=== PATIENT | male | born 1950 | race African-American/Black ===

== ENCOUNTER 2018-03-31 11:51 | Inpatient (IN) | payer OTHER ==
[2018-03-31 12:09] VITALS: BMI 24.5
--- NOTE | 2018-03-31 12:33 | HP ---
CIWA Score Nausea/Vomitin Muscle Tremors: 2 Anxiety: 2 Agitation: 2 Paroxysmal Sweats: 1-Minimal Palms Moist Orientation: 0-Oriented Tacttile Disturbances: 1-Very Mild Itch/Numbness Auditory Disturbances: 1-Very Mild Visual Disturbances: 0-None Headache: 2-Mild CIWA-Ar Total Score: 13 - Admission Criteria OASAS Guidelines: Admission for Medically Managed Detox: Requires at least one of the followin. CIWA greater than 12 2. Seizures within the past 24 hours 3. Delirium tremens within the past 24 hours 4. Hallucinations within the past 24 hours 5. Acute intervention needed for co occurring medical disorder 6. Acute intervention needed for co occurring psychiatric disorder 7. Severe withdrawal that cannot be handled at a lower level of care (continued vomiting, continued diarrhea, abnormal vital signs) requiring intravenous medication and/or fluids 8. Patient presents the following: CIWA greater than 12 Admission Criteria Met: Admission criteria met Admission ROS BHS - HPI Chief Complaint: i need help to stop drinking alcohol Allergies/Adverse Reactions: Allergies Allergy/AdvReac Type Severity Reaction Status Date / Time No Known Allergies Allergy Verified 03/31/18 20:40 History of Present Illness: this 67 years old male with alcohol dependence,seeking detox,withdrawal symptom, last detox in the [place],did not recall the facility 03/02 syncope alcohol related hiv since 1989 weight loss no significant period of sobriety plan to go to rehab after detox Exam Limitations: No Limitations - Ebola screening Have you traveled outside of the country in the last 21 days: No Have you been sick,other than usual withdrawal symptoms: No - Review of Systems Constitutional: Loss of Appetite, Malaise, Night Sweats, Changes in sleep, Weakness, Unintentional Wgt. Loss EENT: reports: Tearing, Nose Congestion Respiratory: reports: No Symptoms reported Cardiac: reports: No Symptoms Reported GI: reports: Nausea, Vomiting, Abdominal cramping : reports: No Symptoms Reported Musculoskeletal: reports: Back Pain, Muscle Pain Integumentary: reports: Dryness Neuro: reports: Headache, Tremors Endocrine: reports: No Symptoms Reported Hematology: reports: No Symptoms Reported, Other (hiv on med) Psychiatric: reports: No Sypmtoms Reported, Judgement Intact, Mood/Affect Appropiate, Orientated x3 Other Systems: Reviewed and Negative Patient History - Patient Medical History Hx Anemia: No Hx Asthma: No Hx Chronic Obstructive Pulmonary Disease (COPD): No Hx Cancer: No Hx Cardiac Disorders: No Hx Congestive Heart Failure: No Hx Hypertension: No Hx Hypercholesterolemia: No Hx Pacemaker: No HX Cerebrovascular Accident: No Hx Seizures: No Hx Dementia: No Hx Diabetes: No Hx Gastrointestinal Disorders: No Hx Liver Disease: No Hx Genitourinary Disorders: No Hx Sexually Transmitted Disorders: No Hx Renal Disease (ESRD): No Hx Thyroid Disease: No Hx Human Immunodeficiency Virus (HIV): Yes (since 1989) Hx Hepatitis C: No Hx Depression: No Hx Suicide Attempt: No Hx Bipolar Disorder: No Hx Schizophrenia: No Other Medical History: no suicidal,no homicidal - Patient Surgical History Past Surgical History: No - PPD History Previous Implant?: Yes Documented Results: Negative w/o proof Implanted On Prior [facility] Admission?: No PPD to be Administered?: Yes - Smoking Cessation Smoking history: Never smoked - Substance & Tx. History Hx Alcohol Use: Yes Hx Substance Use: No Substance Use Type: Alcohol Hx Substance Use Treatment: Yes (03/02 in the [place]) - Substances Abused Alcohol Route: Oral Frequency: Daily Amount used: 1 pint of vodka,gin Age of first use: 64 Date of Last Use: 03/30/18 Family Disease History - Family Disease History Family History: Denies Family Disease History: Other: Father (anju,) Admission Physical Exam BHS - Vital Signs Vital Signs: Vital Signs - 24 hr 03/31/18 12:07 Temperature 98.4 F Pulse Rate 100 H Respiratory 18 Rate Blood Pressure 157/94 - Physical General Appearance: Yes: Moderate Distress, Tremorous, Irritable, Sweating, Anxious HEENTM: Yes: Normal ENT Inspection, HERBERT, Pharynx Normal Respiratory: Yes: Lungs Clear, Normal Breath Sounds, No Respiratory Distress Neck: Yes: Within Normal Limits, Supple, Trachea in good position Breast: Yes: Within Normal Limits Cardiology: Yes: Within Normal Limits, Regular Rhythm, Regular Rate, S1, S2 Abdominal: Yes: Within Normal Limits, Normal Bowel Sounds, Non Tender, Soft Genitourinary: Yes: Within Normal Limits Back: Yes: Muscle Spasm Musculoskeletal: Yes: Back pain, Muscle Pain Extremities: Yes: Tremors Neurological: Yes: back feeder plywood layup line II-XII NML intact, Fully Oriented, Alert, Motor Strength 5/5 Integumentary: Yes: Dry Lymphatic: Yes: Within Normal Limits - Diagnostic (1) Alcohol dependence with uncomplicated withdrawal Current Visit: Yes Status: Acute (2) Alcohol dependence with uncomplicated intoxication Current Visit: Yes Status: Acute (3) HIV (human immunodeficiency virus infection) Current Visit: Yes Status: Acute (4) Weight loss Current Visit: Yes Status: Acute (5) Syncope Current Visit: Yes Status: Acute Cleared for Admission BHS - Detox or Rehab [facility] Level of Care: Medically Managed Detox Regimen/Protocol: Librium S Breath Alcohol Content Breath Alcohol Content: 194 Urine Drug Screen - Results Drug Screen Negative: No Urine Drug Screen Results: BZO-Benzodiazepines Inpatient Rehab Admission - Rehab Decision to Admit Inpatient rehab admission?: No
[2018-03-31] MEDS ORDERED: chlordiazePOXIDE HCL 25 MG CAPSULE PO PRN (13:32)
[2018-03-31] MEDS ORDERED: LOPERAMIDE HCL 2 MG CAPSULE PO PRN (13:32)
[2018-03-31] MEDS ORDERED: guaiFENesin/D-METHORPHAN HB 10 ML UNIT-DOSE CUPS PO PRN (13:32)
[2018-03-31] MEDS ORDERED: P-EPHED 60MG/TRIPROLIDI 2.5MG TABLET PO PRN (13:32)
[2018-03-31] MEDS ORDERED: IBUPROFEN 400 MG TABLET (FP) PO PRN (13:32)
[2018-03-31] MEDS ORDERED: MAGNESIUM HYDROX 2400MG/30ML ORAL SUSPENSION 30 ML CUP PO PRN (13:32)
[2018-03-31] MEDS ORDERED: MAGNESIUM CITRATE 300 ML BOTTLE PO PRN (13:32)
[2018-03-31] MEDS ORDERED: MENTHOL/PHENOL 1 EACH UD MM PRN (13:32)
[2018-03-31] MEDS ORDERED: hydrOXYzine PAMOATE 25 MG CAPSULE (FP) PO PRN (13:32)
[2018-03-31] MEDS ORDERED: MAG HYDROX/AL HYDROX/SIMETH 30 ML UNIT-DOSE CUP PO PRN (13:32)
[2018-03-31] MEDS ORDERED: ACETAMINOPHEN 325 MG TABLET (FP) PO PRN (13:32)
[2018-03-31] MEDS ORDERED: TRIMETHOBENZAMIDE HCL 200MG/2ML INJ IM PRN (17:14)
[2018-03-31] MEDS: chlordiazePOXIDE HCL 25 MG CAPSULE PO SCH ×2 (18:35→23:18)
--- NOTE | 2018-03-31 19:32 | PN ---
[facility] Progress Note Note: informed by nurse that patient had vomited with large amount of coffee material complaint of epigastric pain alert no difficulty in breathing abdomen soft,no distention pain on deep palpation bowel sound active no calf tenderness bp 177/97,p107,r18,t98.2 impression r/o upper gi bleeding alcohol dependence with uncomplicated withdrawal alcohol dependence with uncomplicated intoxication hiv treatment to er at [facility] for evaluation ,stabilization and treatment endorsed to Dr.Paul Esposito transported by [facility] MRS Hayden,nursing splicing supervisor present
[2018-03-31] MEDS ORDERED: MELATONIN 5 MG TABLETS PO PRN (22:00)
[2018-03-31 22:14] LABS: URINE APPEARANCE TURBID; URINE BILIRUBIN NEGATIVE (<2.0 mg/dL); URINE COLOR AMBER; URINE GLUCOSE (UA) NEGATIVE (NEGATIVE); URINE KETONE TRACE (NEGATIVE); URINE LEUK ESTERASE 1+ (NEGATIVE); URINE NITRITE NEGATIVE (NEGATIVE); URINE PROTEIN 2+ (NEGATIVE); URINE UROBILINOGEN NEGATIVE mg/dL (0.2-1.0)
[2018-03-31 22:22] LABS: EPI CELLS RARE /HPF (FEW); URINE BACTERIA MODERATE /hpf (NONE SEEN); URINE HYALINE CAST 3 /lpf; URINE MUCUS MODERATE
[2018-03-31] MEDS: THIAMINE HCL 100 MG TABLET (FP) PO SCH (23:19)
[2018-04-01] MEDS: chlordiazePOXIDE HCL 25 MG CAPSULE PO SCH ×4 (06:27→22:37)
--- NOTE | 2018-04-01 10:39 | EKG ---
Test Reason : Blood Pressure : / mmHG Vent. Rate : 106 BPM Atrial Rate : 106 BPM P-R Int : 202 ms QRS Dur : 088 ms QT Int : 338 ms P-R-T Axes : 051 063 049 degrees QTc Int : 448 ms SINUS TACHYCARDIA SEPTAL INFARCT , AGE UNDETERMINED ABNORMAL ECG NO PREVIOUS ECGS AVAILABLE Confirmed by MILVIA WATTS, EDWAR ([id number]) on 04/01/2018 10:39:15 AM Referred By: Thomas Young Confirmed By:EDWAR STEEL MD
[2018-04-01] MEDS: EMTRICITABINE/TENOFOV ALAFENAM (DESCOVY) TABLET PO SCH (11:03)
[2018-04-01] MEDS: DOLUTEGRAVIR SODIUM 50 MG TABLET (NON-FORMULARY) PO SCH (11:03)
[2018-04-01] MEDS: PRENATAL VITAMINS W/ FOLIC ACID TABLET (FP) PO SCH (11:04)
[2018-04-01 11:18] LABS: ALBUMIN 3.7 g/dl (3.4-5.0); ALK PHOS 67 U/L (45-117); ANION GAP 9 MMOL/L (8-16); BLOOD UREA NITROGEN 6 mg/dL (7-18); CALCIUM 8.3 mg/dL (8.5-10.1); CHLORIDE 96 mmol/L (98-107); CO2 30 mmol/L (21-32); CREATININE 0.9 mg/dL (0.55-1.3); GLUCOSE,RANDOM 116 mg/dL (74-106); POTASSIUM 3.5 mmol/L (3.5-5.1); SGOT/AST 35 U/L (15-37); SGPT/ALT 19 U/L (13-61); SODIUM 135 mmol/L (136-145)
[2018-04-01 11:23] LABS: HEMATOCRIT 37.7 % (35.4-49); HEMOGLOBIN 12.8 GM/dL (11.7-16.9); MCH 31.7 pg (25.7-33.7); MCHC 33.9 g/dl (32.0-35.9); MEAN CELL VOLUME 93.4 fl (80-96); MEAN PLT VOLUME 9.6 fl (7.5-11.1); PLATELET COUNT 165 K/MM3 (134-434); RBC 4.03 M/mm3 (4.00-5.60); RDW 15.7 % (11.9-15.9); WHITE BLOOD COUNT 6.6 K/mm3 (4.0-10.0)
--- NOTE | 2018-04-01 13:24 | PN ---
S CIWA - CIWA Score Nausea/Vomitin Muscle Tremors: 3 Anxiety: 2 Agitation: 0-Normal Activity Paroxysmal Sweats: 3 Orientation: 2-Disoriented Date<2 days Tacttile Disturbances: 0-None Auditory Disturbances: 0-None Visual Disturbances: 2-Mild Sensitivity Headache: 0-None Present CIWA-Ar Total Score: 17 BHS Progress Note (SOAP) Subjective: Sweating, Tremors. Objective: PATIENT A & O X 2 (UNCERTAIN ABOUT CURRENT DAY / DATE). IN NO ACUTE DISTRESS. PATIENT DENIES KNOWN HISTORY OF HTN. 04/01/18 13:20 Vital Signs Temperature 97.3 F L 04/01/18 09:47 Pulse Rate 104 H 04/01/18 09:47 Respiratory Rate 16 04/01/18 09:47 Blood Pressure 140/98 04/01/18 09:47 O2 Sat by Pulse Oximetry (%) Laboratory Tests 03/31/18 04/01/18 04/01/18 16:14 07:50 07:50 WBC 6.6 RBC 4.03 Hgb 12.8 Hct 37.7 MCV 93.4 MCH 31.7 MCHC 33.9 RDW 15.7 Plt Count 165 MPV 9.6 Sodium 135 L Potassium 3.5 Chloride 96 L Carbon Dioxide 30 Anion Gap 9 BUN 6 L Creatinine 0.9 Creat Clearance w eGFR > 60 Random Glucose 116 H Calcium 8.3 L Total Bilirubin 1.0 AST 35 ALT 19 Alkaline Phosphatase 67 Total Protein 8.0 Albumin 3.7 Urine Color [place] Urine Appearance Turbid Urine pH 6.0 Ur Specific [place] 1.024 Urine Protein 2+ H Urine Glucose (UA) Negative Urine Ketones Trace H Urine Blood Negative Urine Nitrite Negative Urine Bilirubin Negative Urine Urobilinogen Negative Ur Leukocyte Esterase 1+ H Urine WBC (Auto) 23 Urine RBC (Auto) 2 Ur Epithelial Cells Rare Urine Bacteria Moderate Hyaline Casts 3 Urine Mucus Moderate RPR Titer 04/01/18 07:50 WBC RBC Hgb Hct MCV MCH MCHC RDW Plt Count MPV Sodium Potassium Chloride Carbon Dioxide Anion Gap BUN Creatinine Creat Clearance w eGFR Random Glucose Calcium Total Bilirubin AST ALT Alkaline Phosphatase Total Protein Albumin Urine Color Urine Appearance Urine pH Ur Specific [place] Urine Protein Urine Glucose (UA) Urine Ketones Urine Blood Urine Nitrite Urine Bilirubin Urine Urobilinogen Ur Leukocyte Esterase Urine WBC (Auto) Urine RBC (Auto) Ur Epithelial Cells Urine Bacteria Hyaline Casts Urine Mucus RPR Titer Nonreactive LABS NOTED. PATIENT WAS EVALUATED (AND SUBSEQUENTLY CLEARED TO RETURN TO DETOX UNIT) YESTERDAY AT [facility] ER FOR C/O EPIGASTRIC PAIN AND VOMITING OF DARKENED-COLORED MATERIAL. PATIENT DENIES EPIGASTRIC PAIN AND AND ANY EPISODES OF VOMITING THUS FAR TODAY. 04/01/18 13:21 Assessment: 04/01/18 13:22 WITHDRAWAL SYMPTOMS. ELEVATED BP. Plan: CONTINUE DETOX. PRN TIGAN IM FOR NAUSEA / VOMITING. CLONIDINE, 0.1 MG PO BID FOR ELEVATED BP AND FOR WITHDRAWAL SYMPTOMS. INCREASE DAILY PO FLUID INTAKE. REPEAT UA FOR ADMISSION ABNORMALITIES. PATIENT ADVISED TO IMMEDIATELY NOTIFY NURSING / MEDICAL STAFF SHOULD VOMITING OCCUR AGAIN. PATIENT VERBALIZED UNDERSTANDING OF RECOMMENDATION.
[2018-04-01] MEDS ORDERED: cloNIDine HCL 0.1 MG TABLET PO ONE (14:00)
[2018-04-01 18:26] LABS: URINE APPEARANCE CLEAR; URINE BILIRUBIN NEGATIVE (<2.0 mg/dL); URINE COLOR LTYELLOW; URINE GLUCOSE (UA) NEGATIVE (NEGATIVE); URINE KETONE NEGATIVE (NEGATIVE); URINE LEUK ESTERASE 3+ (NEGATIVE); URINE NITRITE NEGATIVE (NEGATIVE); URINE PROTEIN NEGATIVE (NEGATIVE); URINE UROBILINOGEN NEGATIVE mg/dL (0.2-1.0)
[2018-04-01] MEDS: cloNIDine HCL 0.1 MG TABLET PO SCH (22:37)
[2018-04-01] MEDS: THIAMINE HCL 100 MG TABLET (FP) PO SCH (22:37)
[2018-04-02] MEDS: chlordiazePOXIDE HCL 25 MG CAPSULE PO SCH ×2 (06:09→10:34)
[2018-04-02] MEDS: PRENATAL VITAMINS W/ FOLIC ACID TABLET (FP) PO SCH (10:33)
[2018-04-02] MEDS: DOLUTEGRAVIR SODIUM 50 MG TABLET (NON-FORMULARY) PO SCH (10:34)
[2018-04-02] MEDS: EMTRICITABINE/TENOFOV ALAFENAM (DESCOVY) TABLET PO SCH (10:34)
[2018-04-02] MEDS: cloNIDine HCL 0.1 MG TABLET PO SCH (10:35)
--- NOTE | 2018-04-02 13:01 | PN ---
[facility] CIWA - CIWA Score Nausea/Vomitin-No Nausea/No Vomiting Muscle Tremors: 3 Anxiety: 2 Agitation: 0-Normal Activity Paroxysmal Sweats: 3 Orientation: 0-Oriented Tacttile Disturbances: 1-Very Mild Itch/Numbness Auditory Disturbances: 0-None Visual Disturbances: 2-Mild Sensitivity Headache: 0-None Present CIWA-Ar Total Score: 11 S Progress Note (SOAP) Subjective: Sweating, Tremors, Fatigue. Patient Denies any Episodes of Vomiting Thus Far Today. Objective: PATIENT A & O X 3. IN NO ACUTE DISTRESS. NO URINARY COMPLAINTS (BURNING, PAIN, FREQUENCY, URGENCY, HESITANCY) OFFERED BY PATIENT DURING TODAY'S ROUNDS ASSESSMENT. 04/02/18 13:01 Vital Signs Temperature 98.6 F 04/02/18 09:45 Pulse Rate 90 04/02/18 09:45 Respiratory Rate 18 04/02/18 09:45 Blood Pressure 92/60 04/02/18 09:45 O2 Sat by Pulse Oximetry (%) Laboratory Tests 03/31/18 04/01/18 04/01/18 16:14 07:50 07:50 WBC 6.6 RBC 4.03 Hgb 12.8 Hct 37.7 MCV 93.4 MCH 31.7 MCHC 33.9 RDW 15.7 Plt Count 165 MPV 9.6 Sodium 135 L Potassium 3.5 Chloride 96 L Carbon Dioxide 30 Anion Gap 9 BUN 6 L Creatinine 0.9 Creat Clearance w eGFR > 60 Random Glucose 116 H Calcium 8.3 L Total Bilirubin 1.0 AST 35 ALT 19 Alkaline Phosphatase 67 Total Protein 8.0 Albumin 3.7 Urine Color [place] Urine Appearance Turbid Urine pH 6.0 Ur Specific [place] 1.024 Urine Protein 2+ H Urine Glucose (UA) Negative Urine Ketones Trace H Urine Blood Negative Urine Nitrite Negative Urine Bilirubin Negative Urine Urobilinogen Negative Ur Leukocyte Esterase 1+ H Urine WBC (Auto) 23 Urine RBC (Auto) 2 Ur Epithelial Cells Rare Urine Bacteria Moderate Hyaline Casts 3 Urine Mucus Moderate RPR Titer 04/01/18 04/01/18 07:50 16:56 WBC RBC Hgb Hct MCV MCH MCHC RDW Plt Count MPV Sodium Potassium Chloride Carbon Dioxide Anion Gap BUN Creatinine Creat Clearance w eGFR Random Glucose Calcium Total Bilirubin AST ALT Alkaline Phosphatase Total Protein Albumin Urine Color Ltyellow Urine Appearance Clear Urine pH 8.0 D Ur Specific [place] 1.009 L Urine Protein Negative Urine Glucose (UA) Negative Urine Ketones Negative Urine Blood Negative Urine Nitrite Negative Urine Bilirubin Negative Urine Urobilinogen Negative Ur Leukocyte Esterase 3+ H D Urine WBC (Auto) 13 Urine RBC (Auto) 2 Ur Epithelial Cells Urine Bacteria Hyaline Casts Urine Mucus RPR Titer Nonreactive LABS NOTED. 04/02/18 13:03 Assessment: 04/02/18 13:02 WITHDRAWAL SYMPTOMS. Plan: CONTINUE DETOX. INCREASE DAILY PO FLUID INTAKE. D/C CLONIDINE DUE TO LOW BP ON LAST SEVERAL READINGS. PATIENT ADVISED TO FOLLOW-UP WITH PUBLIC SERVICES LIBRARIAN DR. LOCKWOOD ([place], [place]) SOON POSSIBLE AFTER DISCHARGE FROM DETOX UNIT FOR GENERAL MEDICAL ASSESSMENT AND FOR VOMITING THAT OCCURRED DURING DETOX ADMISSION. PATIENT VERBALIZED UNDERSTANDING OF RECOMMENDATION.
[2018-04-02] MEDS: chlordiazePOXIDE 5 MG CAPSULE PO SCH ×2 (18:14→23:20)
[2018-04-02] MEDS: THIAMINE HCL 100 MG TABLET (FP) PO SCH (23:20)
[2018-04-03] MEDS: chlordiazePOXIDE 5 MG CAPSULE PO SCH ×2 (06:24→11:00)
[2018-04-03] MEDS: PRENATAL VITAMINS W/ FOLIC ACID TABLET (FP) PO SCH (11:00)
[2018-04-03] MEDS: EMTRICITABINE/TENOFOV ALAFENAM (DESCOVY) TABLET PO SCH (11:00)
[2018-04-03] MEDS: DOLUTEGRAVIR SODIUM 50 MG TABLET (NON-FORMULARY) PO SCH (11:00)
--- NOTE | 2018-04-03 11:46 | PN ---
[facility] Progress Note (SOAP) Subjective: pt here for alcohol detox- says he is doing well, no complaints O: Vital Signs - 24 hr 04/02/18 04/02/18 04/02/18 13:52 17:05 22:41 Temperature 96.3 F L 97.7 F 97.7 F Pulse Rate 84 72 88 Respiratory 18 18 18 Rate Blood Pressure 107/84 111/68 143/81 04/03/18 04/03/18 04/03/18 00:30 06:10 09:11 Temperature 98.6 F 98.1 F Pulse Rate 69 72 Respiratory 18 18 18 Rate Blood Pressure 121/71 129/73 Laboratory Tests 03/31/18 04/01/18 04/01/18 16:14 07:50 07:50 WBC 6.6 RBC 4.03 Hgb 12.8 Hct 37.7 MCV 93.4 MCH 31.7 MCHC 33.9 RDW 15.7 Plt Count 165 MPV 9.6 Sodium 135 L Potassium 3.5 Chloride 96 L Carbon Dioxide 30 Anion Gap 9 BUN 6 L Creatinine 0.9 Creat Clearance w eGFR > 60 Random Glucose 116 H Calcium 8.3 L Total Bilirubin 1.0 AST 35 ALT 19 Alkaline Phosphatase 67 Total Protein 8.0 Albumin 3.7 Urine Color [place] Urine Appearance Turbid Urine pH 6.0 Ur Specific [place] 1.024 Urine Protein 2+ H Urine Glucose (UA) Negative Urine Ketones Trace H Urine Blood Negative Urine Nitrite Negative Urine Bilirubin Negative Urine Urobilinogen Negative Ur Leukocyte Esterase 1+ H Urine WBC (Auto) 23 Urine RBC (Auto) 2 Ur Epithelial Cells Rare Urine Bacteria Moderate Hyaline Casts 3 Urine Mucus Moderate RPR Titer 04/01/18 04/01/18 07:50 16:56 WBC RBC Hgb Hct MCV MCH MCHC RDW Plt Count MPV Sodium Potassium Chloride Carbon Dioxide Anion Gap BUN Creatinine Creat Clearance w eGFR Random Glucose Calcium Total Bilirubin AST ALT Alkaline Phosphatase Total Protein Albumin Urine Color Ltyellow Urine Appearance Clear Urine pH 8.0 D Ur Specific [place] 1.009 L Urine Protein Negative Urine Glucose (UA) Negative Urine Ketones Negative Urine Blood Negative Urine Nitrite Negative Urine Bilirubin Negative Urine Urobilinogen Negative Ur Leukocyte Esterase 3+ H D Urine WBC (Auto) 13 Urine RBC (Auto) 2 Ur Epithelial Cells Urine Bacteria Hyaline Casts Urine Mucus RPR Titer Nonreactive a/p: conitnue alcohol detox protocol pt to consider rehab services- to d/w counselor
[2018-04-03] MEDS: chlordiazePOXIDE HCL 10 MG CAPSULE PO SCH ×2 (17:58→22:30)
[2018-04-03] MEDS: THIAMINE HCL 100 MG TABLET (FP) PO SCH (22:30)
[2018-04-04] MEDS: chlordiazePOXIDE HCL 10 MG CAPSULE PO SCH (05:25)
[2018-04-04 09:18] VITALS: BP 148/97; PULSE 80; TEMP 100.9
--- NOTE | 2018-04-04 20:49 | DS ---
[facility] Detox Discharge Summary Admission Date: 03/31/18 Discharge Date: 04/04/18 - History Present History: Alcohol Dependence Additional Comments: PATIENT DENIES CURRENT WITHDRAWAL / DETOX SYMPTOMS AND REPORTS THAT HE FEELS WELL OVERALL AT TIME OF DISCHARGE FROM DETOX UNIT. PATIENT GOING TO GO TO [facility] ([place], [place]) FOR AFTERCARE. PATIENT AGAIN ADVISED TO FOLLOW-UP WITH MEDICAL PROVIDER DR. LOCKWOOD ([place], [place] ) FOR GENERAL MEDICAL ASSESSMENT AND FOR VOMITING THAT OCCURRED EARLIER ON DURING DETOX ADMISSION. PATIENT VERBALIZED UNDERSTANDING OF RECOMMENDATION AND NOTED THAT HE HAS AN UPCOMING APPOINTMENT WITH DR. LOCKWOOD IN THE NEXT WEEK. PATIENT WAS DISCHARGED FROM DETOX UNIT IN STABLE MEDICAL CONDITION. Pertinent Past History: Weight Loss, H.I.V. History of Syncope. - Physical Exam Results Vital Signs: Vital Signs Temperature 100.9 F H 04/04/18 09:17 Pulse Rate 80 04/04/18 09:17 Respiratory Rate 18 04/04/18 09:17 Blood Pressure 148/97 04/04/18 09:17 O2 Sat by Pulse Oximetry (%) Pertinent Admission Physical Exam Findings: WITHDRAWAL SYMPTOMS. Laboratory Tests 03/31/18 04/01/18 04/01/18 16:14 07:50 07:50 WBC 6.6 RBC 4.03 Hgb 12.8 Hct 37.7 MCV 93.4 MCH 31.7 MCHC 33.9 RDW 15.7 Plt Count 165 MPV 9.6 Sodium 135 L Potassium 3.5 Chloride 96 L Carbon Dioxide 30 Anion Gap 9 BUN 6 L Creatinine 0.9 Creat Clearance w eGFR > 60 Random Glucose 116 H Calcium 8.3 L Total Bilirubin 1.0 AST 35 ALT 19 Alkaline Phosphatase 67 Total Protein 8.0 Albumin 3.7 Urine Color [place] Urine Appearance Turbid Urine pH 6.0 Ur Specific [place] 1.024 Urine Protein 2+ H Urine Glucose (UA) Negative Urine Ketones Trace H Urine Blood Negative Urine Nitrite Negative Urine Bilirubin Negative Urine Urobilinogen Negative Ur Leukocyte Esterase 1+ H Urine WBC (Auto) 23 Urine RBC (Auto) 2 Ur Epithelial Cells Rare Urine Bacteria Moderate Hyaline Casts 3 Urine Mucus Moderate RPR Titer 04/01/18 04/01/18 07:50 16:56 WBC RBC Hgb Hct MCV MCH MCHC RDW Plt Count MPV Sodium Potassium Chloride Carbon Dioxide Anion Gap BUN Creatinine Creat Clearance w eGFR Random Glucose Calcium Total Bilirubin AST ALT Alkaline Phosphatase Total Protein Albumin Urine Color Ltyellow Urine Appearance Clear Urine pH 8.0 D Ur Specific [place] 1.009 L Urine Protein Negative Urine Glucose (UA) Negative Urine Ketones Negative Urine Blood Negative Urine Nitrite Negative Urine Bilirubin Negative Urine Urobilinogen Negative Ur Leukocyte Esterase 3+ H D Urine WBC (Auto) 13 Urine RBC (Auto) 2 Ur Epithelial Cells Urine Bacteria Hyaline Casts Urine Mucus RPR Titer Nonreactive LABS NOTED. - Treatment Hospital Course: Detox Protocol Followed, Detoxed Safely, Responded well, Discharged Condition Good Patient has Accepted a Rehab Referral to: PATIENT TO ATTEND [facility] ([place], [place]). - Medication Discharge Medications: Ambulatory Orders Dolutegravir Sodium [Tivicay] 50 mg PO DAILY 03/31/18 Emtricitabine/Tenofov Alafenam [Descovy 200-25 mg Tablet (Nf)] 1 each PO DAILY 03/31/18 - Diagnosis (1) Alcohol dependence with uncomplicated intoxication Status: Acute (2) Alcohol dependence with uncomplicated withdrawal Status: Acute (3) HIV (human immunodeficiency virus infection) Status: Chronic Qualifiers: HIV symptom status: unspecified Qualified Code(s): B20 - Human immunodeficiency virus [HIV] disease (4) Syncope Status: Acute Qualifiers: Syncope type: unspecified Qualified Code(s): R55 - Syncope and collapse (5) Weight loss Status: Acute - AMA Did Patient Leave Against Medical Advice: No
== END 2018-04-04 09:29 | disposition home or self-care (01) | DRG 897 ==
LOC: YASAS 11:51 → Y6N 13:14
PROVIDERS: ADMIT Surgery; ATTEND Surgery
PROC: HZ2ZZZZ Detoxification Services for Substance Abuse Treatment (ICD-10-PCS; principal; 2018-03-31)
DX: F10.230 Alcohol dependence with withdrawal, uncomplicated (principal); F10.220 Alcohol dependence with intoxication, uncomplicated; Z21 Asymptomatic human immunodeficiency virus [HIV] infection status; R03.0 Elevated blood-pressure reading, without diagnosis of hypertension; R10.13 Epigastric pain; R11.10 Vomiting, unspecified
CPT/HCPCS: 36415; 80053; 81003; 81015; 85027; 86593; 93005; 93010; J0735

== ENCOUNTER 2018-03-31 20:27 | Emergency (ER) | payer OTHER ==
[2018-03-31 20:42] VITALS: BMI 30.7
--- NOTE | 2018-03-31 20:59 | PDOC ---
History of Present Illness - General Chief Complaint: Coffee Ground Emesis Stated Complaint: Nausea/Vomiting Time Seen by Provider: 03/31/18 20:52 History Source: Patient - History of Present Illness Initial Comments: 03/31/18 21:00 The patient is a 67 year old male with a PMH of ETOH abuse (1 year history of 1 pint daily), Hepatitis C (s/p unknown treatment), HIV (on HAART, undetectable viral load) presents to our ED from [facility] c/o 3 episodes of dark colored emesis, 1 month h/o black tarry stools and 2 month h/o fatigues. Endorses associated abdominal cramping that is diffuse, constant, non-radiating. Last alcoholic drink today prior to presentation. Multiple episodes of brown watery emesis during HPI. NKDA Social: 1 pint alcohol daily Infectious Disease: Dr. Ismael Ramos ([facility]) As per EMR, patient has not been evaluated in our ED on prior occasion. Past History - Past Medical History Allergies/Adverse Reactions: Allergies Allergy/AdvReac Type Severity Reaction Status Date / Time No Known Allergies Allergy Verified 03/31/18 20:40 Home Medications: Ambulatory Orders Dolutegravir Sodium [Tivicay] 50 mg PO DAILY 03/31/18 Emtricitabine/Tenofov Alafenam [Descovy 200-25 mg Tablet (Nf)] 1 each PO DAILY 03/31/18 Anemia: No Asthma: No Cancer: No Cardiac Disorders: No CVA: No COPD: No CHF: No Dementia: No Diabetes: No GI Disorders: No Disorders: No HTN: No Hypercholesterolemia: No Liver Disease: No Seizures: No Thyroid Disease: No - Suicide/Smoking/Psychosocial Hx Smoking History: Never smoked Have you smoked in the past 12 months: No Information on smoking cessation initiated: No Hx Alcohol Use: Yes Drug/Substance Use Hx: Yes Substance Use Type: Alcohol Hx Substance Use Treatment: Yes (03/02 in the [facility]) Review of Systems - Review of Systems Constitutional: No: Fever, Weakness HEENTM: No: Recent change in vision Respiratory: No: Cough, Shortness of Breath Cardiac (ROS): No: Chest Pain, Lightheadedness, Palpitations, Syncope ABD/GI: Yes: Tarry Stools. No: Constipated, Diarrhea, Nausea, Vomiting : No: Burning, Dysuria *Physical Exam - Vital Signs Last Vital Signs Temp Pulse Resp BP Pulse Ox 98.0 F 99 H 16 146/86 100 03/31/18 20:38 03/31/18 20:38 03/31/18 20:38 03/31/18 20:38 03/31/18 20:38 - Physical Exam General Appearance: Yes: Nourished, Appropriately Dressed HEENT: positive: Normal Voice, Hearing Grossly Normal Neck: positive: Trachea midline, Supple Respiratory/Chest: positive: Lungs Clear, Normal Breath Sounds Cardiovascular: positive: S1, S2. negative: Edema Vascular Pulses: Dorsalis-Pedis (R): 2+, Doralis-Pedis (L): 2+ Gastrointestinal/Abdominal: positive: Soft, Protuberent. negative: Guarding, Rebound, Tenderness, Hernia, Mass Extremity: positive: Normal Capillary Refill, Normal Inspection Integumentary: positive: Normal Color, Dry, Warm Neurologic: positive: Fully Oriented, Alert Moderate Sedation - Procedure Monitoring Vital Signs: Procedure Monitoring Vital Signs Temperature 98.0 F 03/31/18 20:38 Pulse Rate 99 H 03/31/18 20:38 Respiratory Rate 16 03/31/18 20:38 Blood Pressure 146/86 03/31/18 20:38 O2 Sat by Pulse Oximetry (%) 100 03/31/18 20:38 ED Treatment Course - LABORATORY CBC & Chemistry Diagram: 03/31/18 21:30 03/31/18 21:30 Medical Decision Making - Medical Decision Making 03/31/18 21:01 The patient is a 67 year old male with a PMH of ETOH abuse, HIV, Hepatitis C (s/ p treatment) presents to our ED w/multiple episodes of coffee colored emesis. VS uremarkable. Frontal diagnosis: Variceal bleed, PUD, Naida-Montero tear, also consider malignancy, abdominal perforation though less likely. Will give Protonix/Octreotide, IV hydration, basic labs, lipase pending. Reassess. 03/31/18 21:07 03/31/18 22:29 CBC, CMP unremarkable 03/31/18 22:48 Lipase wnL My read of CXR shows no perforation, normal costophrenic angles FOBT pending 03/31/18 22:49 Patient reassessed @ bedside. VSS Octreotide, Protonix hanging 03/31/18 23:09 Critical Lab Value Lactic Acid 3.6 - patient recieving additional 1 L IV NS 03/31/18 23:09 FOBT negative BUN wnL, Hb stable - at this time low clinical suspicion for active UGI bleed requiring acute endoscopy. 03/31/18 23:37 Case d/w [facility]; requests Librium (50 mg) 04/01/18 01:39 Repeat Lactic Acid pending 04/01/18 02:06 Repeat Lactic Acid 2.6, as lactic acidosis resolving, patient remains hemodynamically stable, will discharge to [facility] with instruction to follow- up with GI following discharged from [facility]. *DC/Admit/Observation/Transfer Diagnosis at time of Disposition: Vomiting - Discharge Dispostion Disposition: TRANSFER ACUTE CARE/OTHER HOSP Condition at time of disposition: Good Decision to Admit order: No - Referrals Referrals: Inderjit Gordon MD [Staff Physician] - - Patient Instructions Additional Instructions: You were evaluated today for vomiting. All of your labs showed no concerning findings. At this time you are safe for discharge home. Please follow up with a document control supervisor within 1 week. We have provided a referral to you, or you can call your insurance company for a list of document control supervisor. Return to the Emergency Department for any new/worsening/concerning symptoms. - Post Discharge Activity
[2018-03-31] MEDS ORDERED: SODIUM CHLORIDE 0.9% 500 ML INFUS.BAG IV ONE (21:45)
[2018-03-31 21:51] LABS: BASO % 0.5 % (0-2.0); HEMATOCRIT 41.2 % (35.4-49); HEMOGLOBIN 14.1 GM/dL (11.7-16.9); LYMPH % 34.8 % (8-40); MCH 32.2 pg (25.7-33.7); MCHC 34.3 g/dl (32.0-35.9); MEAN CELL VOLUME 93.9 fl (80-96); MONO % 13.6 % (3.8-10.2); NEUT % 51.1 % (42.8-82.8); PLATELET COUNT 183 K/MM3 (134-434); RBC 4.39 M/mm3 (4.00-5.60); RDW 15.4 % (11.9-15.9); WHITE BLOOD COUNT 8.5 K/mm3 (4.0-10.0)
[2018-03-31] MEDS ORDERED: OCTREOTIDE ACETATE 1,200 MCG in DEXTROSE 5%-WATER - 488 ML IVPB SCH ×2 (22:00→22:15)
[2018-03-31 22:01] LABS: INR 1.01 (0.83-1.09); PROTHROMBIN TIME (PATIENT) 11.9 SEC (9.7-13.0)
[2018-03-31 22:04] LABS: ACTIVATED PTT 18.4 SECONDS (25.2-36.5)
[2018-03-31] MEDS ORDERED: PANTOPRAZOLE SODIUM 40 MG VIAL ONE (22:08)
[2018-03-31] MEDS ORDERED: PANTOPRAZOLE SODIUM 80 MG in SODIUM CHLORIDE 100 ML IVPB SCH (22:15)
[2018-03-31 22:22] LABS: ALK PHOS 69 U/L (45-117); ANION GAP 11 MMOL/L (8-16); BILIRUBIN,TOTAL 0.5 mg/dL (0.2-1); BLOOD UREA NITROGEN 8 mg/dL (7-18); CALCIUM 8.6 mg/dL (8.5-10.1); CHLORIDE 97 mmol/L (98-107); CO2 29 mmol/L (21-32); CREATININE 0.9 mg/dL (0.55-1.3); GLUCOSE,RANDOM 116 mg/dL (74-106); LIPASE 123 U/L (73-393); SGPT/ALT 25 U/L (13-61); SODIUM 137 mmol/L (136-145); TOT PROT 9.1 g/dl (6.4-8.2)
[2018-03-31 22:23] LABS: POTASSIUM 4.7 mmol/L (3.5-5.1); SGOT/AST 56 U/L (15-37)
--- NOTE | 2018-03-31 22:24 | PDOC ---
Attending Attestation - Resident Resident Name: Kayla Desai - ED Attending Attestation I have performed the following: I have examined & evaluated the patient, The case was reviewed & discussed with the resident, I agree w/resident's findings & plan <Jayde Weems - Last Filed: 03/31/18 22:24> - HPI HPI: 03/31/18 23:08 The patient is a 67 year old male, with a significant past medical history of alcohol abuse (1 year history of 1 pint daily), Hepatitis C (s/p unknown treatment), HIV (on HAART, undetectable viral load), who presents to the emergency department via EMS from [facility] with, 3 episodes of coffee ground emesis and 1 month of dark stools. Allergies: NKDA Social History: 1 pint alcohol daily. - Physicial Exam PE: 03/31/18 23:45 GENERAL: Awake, alert, and fully oriented, in no acute distress HEAD: No signs of trauma EYES: PERRLA, EOMI, sclera icteric ENT: Auricles normal inspection, hearing grossly normal, nares patent, oropharynx clear without exudates. Moist mucosa NECK: Normal ROM, supple, no lymphadenopathy, JVD, or masses LUNGS: Breath sounds equal, clear to auscultation bilaterally. No wheezes, and no crackles HEART: Tachy, no murmurs, rubs or gallops ABDOMEN: Soft, nontender, normoactive bowel sounds. No guarding, no rebound. No masses EXTREMITIES: Normal range of motion, no edema. No clubbing or cyanosis. No cords, erythema, or tenderness NEUROLOGICAL: Cranial nerves II through XII grossly intact. Normal speech SKIN: Warm, Dry, normal turgor, no rashes or lesions noted. <Marlon James - Last Filed: 03/31/18 23:46> Attestations - Attestations 03/31/18 23:08 Documentation prepared by Marlon James, acting as medical record librarian for Jayde Weems MD. <Marlon James - Last Filed: 03/31/18 23:46>
[2018-03-31] MEDS ORDERED: chlordiazePOXIDE HCL 25 MG CAPSULE PO ONE (23:37)
[2018-03-31] MEDS ORDERED: chlordiazePOXIDE HCL 25 MG CAPSULE ONE (23:45)
[2018-04-01 01:59] VITALS: BP 149/98; PULSE 93; TEMP 97.9
--- NOTE | 2018-04-01 10:30 | EKG ---
Test Reason : Blood Pressure : / mmHG Vent. Rate : 091 BPM Atrial Rate : 091 BPM P-R Int : 166 ms QRS Dur : 090 ms QT Int : 376 ms P-R-T Axes : 048 -16 025 degrees QTc Int : 462 ms NORMAL SINUS RHYTHM CANNOT RULE OUT INFERIOR INFARCT , AGE UNDETERMINED ABNORMAL ECG WHEN COMPARED WITH ECG OF 31-MAR-2018 14:31, CRITERIA FOR SEPTAL INFARCT ARE NO LONGER PRESENT NO SIGNIFICANT CHANGE WAS FOUND Confirmed by EDWAR STEEL MD ([id number]) on 04/01/2018 10:30:29 AM Referred By: Confirmed By:EDWAR STEEL MD
== END 2018-04-01 02:04 | disposition short-term general hospital (02) ==
LOC: JER 20:27
PROC: 3E033GC Introduction of Other Therapeutic Substance into Peripheral Vein, Percutaneous Approach (ICD-10-PCS; principal; 2018-03-31)
PROC: 3E033GC Introduction of Other Therapeutic Substance into Peripheral Vein, Percutaneous Approach (ICD-10-PCS; 2018-03-31)
DX: R11.10 Vomiting, unspecified (principal); F10.10 Alcohol abuse, uncomplicated; Z21 Asymptomatic human immunodeficiency virus [HIV] infection status; E87.2 Acidosis
CPT/HCPCS: 36415; 71045-TC-FY; 80053; 82272; 83605; 83690; 85025; 85610; 85730; 86850; 86900; 86901; 93005; 93010; 96365; 96366; 96368; 99282-25

== ENCOUNTER 2020-04-09 11:22 | Inpatient (IN) | payer OTHER ==
[2020-04-09 14:12] VITALS: BMI 29.2
[2020-04-09] MEDS ORDERED: chlordiazePOXIDE HCL 25 MG CAPSULE PO ONE (17:23)
[2020-04-09] MEDS ORDERED: MAGNESIUM HYDROX 2400MG/30ML ORAL SUSPENSION 30 ML CUP PO PRN (17:23)
[2020-04-09] MEDS ORDERED: METHOCARBAMOL 500 MG TABLET PO PRN (17:23)
[2020-04-09] MEDS ORDERED: ONDANSETRON *ODT* 4 MG TABLET SL PRN (17:23)
[2020-04-09] MEDS ORDERED: MAG HYDROX/AL HYDROX/SIMETH 30 ML UNIT-DOSE CUP PO PRN (17:23)
[2020-04-09] MEDS ORDERED: MENTHOL/PHENOL 1 EACH UD MM PRN (17:23)
[2020-04-09] MEDS ORDERED: BISMUTH SUBSALICYLATE 524 MG/30 ML UD PO PRN (17:23)
[2020-04-09] MEDS ORDERED: DICYCLOMINE HCL 10 MG CAPSULE PO PRN (17:23)
[2020-04-09] MEDS ORDERED: IBUPROFEN 400 MG TABLET (FP) PO PRN (17:23)
[2020-04-09] MEDS ORDERED: chlordiazePOXIDE HCL 25 MG CAPSULE PO PRN (17:23)
[2020-04-09] MEDS ORDERED: MAGNESIUM CITRATE 300 ML BOTTLE PO PRN (17:23)
[2020-04-09] MEDS ORDERED: cloNIDine HCL 0.1 MG TABLET PO ONE (19:00)
[2020-04-09] MEDS: chlordiazePOXIDE HCL 25 MG CAPSULE PO SCH (22:14)
[2020-04-09] MEDS: THIAMINE HCL 100 MG TABLET (FP) PO SCH (22:14)
[2020-04-09] MEDS: MELATONIN 5 MG TABLETS PO SCH (22:14)
[2020-04-10] MEDS: chlordiazePOXIDE HCL 25 MG CAPSULE PO SCH ×4 (05:44→23:10)
[2020-04-10] MEDS: PRENATAL VITAMINS W/ FOLIC ACID TABLET (FP) PO SCH (10:22)
[2020-04-10 11:25] LABS: HEMATOCRIT 37.4 % (35.4-49); HEMOGLOBIN 12.3 GM/dL (11.7-16.9); MCHC 32.8 g/dl (32.0-35.9); MEAN CELL VOLUME 94.3 fl (80-96); MEAN PLT VOLUME 9.4 fl (7.5-11.1); PLATELET COUNT 200 K/MM3 (134-434); RBC 3.97 M/mm3 (4.00-5.60); RDW 15.3 % (11.9-15.9); WHITE BLOOD COUNT 5.7 K/mm3 (4.0-10.0)
[2020-04-10 11:50] LABS: POTASSIUM 3.8 mmol/L (3.5-5.1)
[2020-04-10 11:54] LABS: CALCIUM 9.2 mg/dL (8.5-10.1)
[2020-04-10 11:55] LABS: ALBUMIN 3.4 g/dl (3.4-5.0); BLOOD UREA NITROGEN 9.2 mg/dL (7-18)
[2020-04-10 11:58] LABS: CREATININE 0.8 mg/dL (0.55-1.3)
[2020-04-10 12:00] LABS: TOT PROT 7.4 g/dl (6.4-8.2)
[2020-04-10] MEDS: PATIENT'S OWN MEDICATION (NON-FORMULARY) (Dolutegravir Sodium [Tivicay] 50 MG Tablet) PO SCH (13:38)
[2020-04-10] MEDS: PATIENT'S OWN MEDICATION (NON-FORMULARY) (Emtricitabine/Tenofov Alafenam [Descovy 200-25 M PO SCH (13:39)
[2020-04-10] MEDS: THIAMINE HCL 100 MG TABLET (FP) PO SCH (23:10)
[2020-04-10] MEDS: MELATONIN 5 MG TABLETS PO SCH (23:10)
[2020-04-11] MEDS: chlordiazePOXIDE HCL 25 MG CAPSULE PO SCH ×4 (06:40→22:44)
[2020-04-11] MEDS: PRENATAL VITAMINS W/ FOLIC ACID TABLET (FP) PO SCH (10:43)
[2020-04-11] MEDS: PATIENT'S OWN MEDICATION (NON-FORMULARY) (Dolutegravir Sodium [Tivicay] 50 MG Tablet) PO SCH (10:43)
[2020-04-11] MEDS: PATIENT'S OWN MEDICATION (NON-FORMULARY) (Emtricitabine/Tenofov Alafenam [Descovy 200-25 M PO SCH (10:43)
[2020-04-11] MEDS ORDERED: hydrOXYzine PAMOATE 25 MG CAPSULE (FP) PO PRN (13:02)
[2020-04-11] MEDS: MELATONIN 5 MG TABLETS PO SCH (22:44)
[2020-04-11] MEDS: THIAMINE HCL 100 MG TABLET (FP) PO SCH (22:44)
[2020-04-12] MEDS ORDERED: chlordiazePOXIDE HCL 10 MG CAPSULE PO PRN
[2020-04-12] MEDS: chlordiazePOXIDE HCL 10 MG CAPSULE PO SCH ×4 (06:49→22:53)
[2020-04-12] MEDS: PRENATAL VITAMINS W/ FOLIC ACID TABLET (FP) PO SCH (10:28)
[2020-04-12] MEDS: PATIENT'S OWN MEDICATION (NON-FORMULARY) (Dolutegravir Sodium [Tivicay] 50 MG Tablet) PO SCH (10:29)
[2020-04-12] MEDS: PATIENT'S OWN MEDICATION (NON-FORMULARY) (Emtricitabine/Tenofov Alafenam [Descovy 200-25 M PO SCH (10:29)
[2020-04-12] MEDS: THIAMINE HCL 100 MG TABLET (FP) PO SCH (22:52)
[2020-04-12] MEDS: MELATONIN 5 MG TABLETS PO SCH (22:52)
[2020-04-13] MEDS: chlordiazePOXIDE HCL 10 MG CAPSULE PO SCH ×2 (06:05→17:31)
[2020-04-13] MEDS: PRENATAL VITAMINS W/ FOLIC ACID TABLET (FP) PO SCH (10:33)
[2020-04-13] MEDS: PATIENT'S OWN MEDICATION (NON-FORMULARY) (Dolutegravir Sodium [Tivicay] 50 MG Tablet) PO SCH (10:33)
[2020-04-13] MEDS: PATIENT'S OWN MEDICATION (NON-FORMULARY) (Emtricitabine/Tenofov Alafenam [Descovy 200-25 M PO SCH (10:33)
[2020-04-13] MEDS: MELATONIN 5 MG TABLETS PO SCH (21:18)
[2020-04-13] MEDS: THIAMINE HCL 100 MG TABLET (FP) PO SCH (21:19)
[2020-04-14] MEDS ORDERED: chlordiazePOXIDE HCL 10 MG CAPSULE PO ONE (05:00)
[2020-04-14] MEDS: PATIENT'S OWN MEDICATION (NON-FORMULARY) (Emtricitabine/Tenofov Alafenam [Descovy 200-25 M PO SCH (09:25)
[2020-04-14] MEDS: PRENATAL VITAMINS W/ FOLIC ACID TABLET (FP) PO SCH (09:26)
[2020-04-14] MEDS: PATIENT'S OWN MEDICATION (NON-FORMULARY) (Dolutegravir Sodium [Tivicay] 50 MG Tablet) PO SCH (09:26)
[2020-04-14 13:30] VITALS: BP 130/70; PULSE 80; TEMP 98.2
== END 2020-04-14 13:59 | disposition home or self-care (01) | DRG 897 ==
LOC: YASAS 11:22 → Y3N 15:54
PROVIDERS: ADMIT Allergy & Immunology; ATTEND Allergy & Immunology
PROC: HZ2ZZZZ Detoxification Services for Substance Abuse Treatment (ICD-10-PCS; principal; 2020-04-09)
DX: F10.230 Alcohol dependence with withdrawal, uncomplicated (principal); Z21 Asymptomatic human immunodeficiency virus [HIV] infection status; R03.0 Elevated blood-pressure reading, without diagnosis of hypertension; R11.10 Vomiting, unspecified; R76.11 Nonspecific reaction to tuberculin skin test without active tuberculosis; R63.4 Abnormal weight loss; Z68.29 Body mass index [BMI] 29.0-29.9, adult; Z86.19 Personal history of other infectious and parasitic diseases; Z87.891 Personal history of nicotine dependence
CPT/HCPCS: 36415; 80053; 85027; 86780; 93005; 93010; C9803; J0735; U0003